=== PATIENT | female | born 1945 | race Two or more races ===

== ENCOUNTER 2016-08-07 07:40 | Emergency (ER) | payer SELFPAY ==
[~2016-08-07] VITALS: Ht 142.2 cm; Wt 56.9 kg
[2016-08-07 09:23] VITALS: BP 170/61
== END 2016-08-07 09:25 | disposition home or self-care (01) ==
LOC: ER 07:40
DX: M17.11 Unilateral primary osteoarthritis, right knee (principal); M19.90 Unspecified osteoarthritis, unspecified site